=== PATIENT | female | born 1970 | race Caucasian/White ===

== ENCOUNTER 2016-12-05 05:46 | Emergency (ER) | payer OTHER ==
[~2016-12-05 05:46] MED LIST: DYAZIDE 37.5/251 CAP PO; IBUPROFEN; KETOPROFEN PO; LEVOTHYROXINE75 MC1; NAPROXEN PO; PRILOSEC; TYLOX 5/500 CAP1 CAP
[2016-12-05 05:50] LABS: URINE SOURCE CLEAN CATCH
[2016-12-05 05:53] LABS: URINE APPEARANCE CLEAR; URINE BILIRUBIN NEG (NEG); URINE BLOOD NEG (NEG); URINE GLUCOSE NEG (NORM); URINE KETONE NEG (NEG); URINE LEUKOCYTE ESTERASE NEG (NEG); URINE NITRATE NEG (NEG); URINE PROTEIN NEG (NEG); URINE SPECIFIC GRAVITY <=1.005 (1.003-1.035); URINE UROBILINOGEN 0.2 MG/DL (NORM)
[2016-12-05 05:54] LABS: URINE COLOR STRAW
[2016-12-05 05:55] LABS: MICRO INDICATED? NO
[2016-12-07 15:49] LABS: CHLAMYDIA TRACH Not Detected (Not Detected); N GONOR Not Detected (Not Detected)
== END 2016-12-05 07:15 | disposition home or self-care (01) ==
LOC: SED 05:46
PROVIDERS: Emergency Medicine
DX: N76.0 Acute vaginitis (principal); H92.02 Otalgia, left ear; E03.9 Hypothyroidism, unspecified; I10 Essential (primary) hypertension
CPT/HCPCS: 81003; 84703; 87491; 87591; 87808; 87905; 99284

== ENCOUNTER → 2017-01-18 | Outpatient (CLI) | payer OTHER ==
--- NOTE | ~2017-01-18 | MY11 ---
[facility] A Service of [facility] RADIOLOGY TEXT RESULTS PATIENT: HARRIS MOODY LOCATION: [facility] : 72 UNIT #: [id number] AGE: [address]: Patti Andujar MD SEX: F ORDER DR: [id number] [address] [address] [id number] MR#: [id number] Acc #: [id number] NAME: HARRIS MOODY. : 1970 SEX: F STUDY DATE/TIME: 01/18/2017 12:18 UNIT: [facility] ROOM: STUDY DESCRIPTION: MY Mammogram Screening Dig Rick Attending Physician: Patti Anudjar M.D. Referring Physician: Patti Andujar M.D. Ordering Physician: Patti Andujar M.D. Primary Care Physician: Patti Andujar M.D. MEDICAL IMAGING REPORT This report is preliminary unless electronic signature is present. EXAM Digital screening mammogram 01/18/2017, [facility]. HISTORY 47 year old woman. Positive family history, maternal aunt, maternal grandmother. Prior bilateral reduction mammoplasties. Annual screening COMPARISON 12/15/2012, 10/10/2015. Digital imaging of each breast was completed utilizing a two-view examination of each breast in craniocaudal and mediolateral-oblique projections. Review and interpretation of digital mammograms include a second review in conjunction with FDA-approved CAD device. There is a normal parenchymal presentation bilaterally consistent with the patient's age. There are no breast masses imaged and no parenchymal asymmetry is visualized. There are no suspicious microcalcifications and I see no focal architectural disturbance. Breast parenchyma is predominately fatty replaced. IMPRESSION Negative screening digital mammogram. One-year followup recommended. Patients over the age of 40 are entered into a reminder system with target due date for the next mammogram. A result letter will also be sent to the patient. BIRADS: 1 Negative. Dictated by... [facility] A Service [facility] RADIOLOGY TEXT RESULTS PATIENT: HARRIS MOODY LOCATION: [facility] : 72 UNIT #: [id number] AGE: [address]: Patti Andujar MD SEX: F ORDER DR: Heriberto Clarke M.D. THIS IS AN ELECTRONICALLY VERIFIED REPORT Heriberto Clarke M.D. at 01/19/2017 9:39 AM GEOVANY/althea TD: 01/18/2017 15:45 JOB #: [id number] MEDICAL IMAGING REPORT Page 1 of 1
== END | disposition home or self-care (01) ==
LOC: SMAM 11:30
DX: Z12.31 Encounter for screening mammogram for malignant neoplasm of breast (principal); Z80.3 Family history of malignant neoplasm of breast
CPT/HCPCS: G0202